=== PATIENT | female | born 1960 | race Caucasian/White ===

== ENCOUNTER 2024-04-23 11:49 | Observation (INO) | payer BC, OTHER ==
[2024-04-23] MEDS: NITROGLYCERIN SL TABS 0.4 MG TAB SUBLINGUAL STA (12:20)
--- NOTE | 2024-04-23 12:34 | ED ---
Chest Pain HPI - General Chief Complaint: Chest Pain Stated Complaint: Chest pain Time Seen by Provider: 04/23/24 12:00 Source: patient Mode of arrival: ambulatory Limitations: no limitations - History of Present Illness Initial Comments: Patient is a 63-year-old female with a past medical history of hypertension, breast cancer intermission for 20 years presenting today for chest pressure. Patient states that 9 days ago she began having "burning" pain in the middle of her upper back that radiated down her left arm, it improved spontaneously however has remained consistent over the course of the last week. This morning the patient woke up with centralized chest pressure stated shortness of breath. Worsens with ambulation. Patient states that when her back pain started she did briefly have a period where she could not remember the words to "Ladonna to the world" but this resolved spontaneously. Otherwise, she denies changes in vision, numbness, weakness, slurred speech, dizziness, new or severe headaches. She has been taking tylenol for pain with little improvement. States that she was previously take metoprolol and losartan, and was seeing Dr. José with cardiology however she lost quite a bit of weight and exerciseso took herself off of these medications 6 months ago. She does not take any other medications and is not on blood thinners. No history of prior PE. Is a non-smoker though her father did have heart disease and at 47 secondary to this. Patient has no history of CAD or prior CVA. She denies recent illness, fevers, cough, diaphroesis, nausea, vomiting, diarrhea, abdominal pain. No LE swelling. - Related Data Home Medications Medication Instructions Recorded Confirmed Acetaminophen Tab [Tylenol Tab] 1,500 mg PO ONCE PRN 04/23/24 04/23/24 Allergies Allergy/AdvReac Type Severity Reaction Status Date / Time amoxicillin Allergy Rash/Hives Verified 04/23/24 13:39 morphine Allergy Wheezing/Ra Verified 04/23/24 13:39 sh Penicillins Allergy Unknown Verified 04/23/24 13:40 Childhood Review of Systems ROS Statement: Those systems with pertinent positive or pertinent negative responses have been documented in the HPI. ROS Other: All systems not noted in ROS Statement are negative. EKG Findings - EKG Comments: EKG Findings:: EKG #1 obtained at 10/12/2015, sinus rhythm, rate 76 bpm, DC i nterval 164 ms, QRS duration 85 ms, QT/QTc 3 to 6/460 ms, normal axis, question [address] elevation in V2, otherwise no reciprocal depressions or ST elevations, no arrhythmia noted in V2 as well. EKG performed at 1229 to ensure no dynamic changes, consistent with prior EKG, [address] elevation V2, otherwise no new ST elevations or depressions, no arrhythmia, rate 82 bpm sinus rhythm DC interval 152 ms, QRS duration 86 ms QT/QTc 4 392/431 ms, borderline left axis deviation Past Medical History Past Medical History: Cancer, Hypertension Additional Past Medical History / Comment(s): Breast cancer History of Any Multi-Drug Resistant Organisms: None Reported Additional Past Surgical History / Comment(s): double mastectomy, bilateral breast implant, Past Psychological History: No Psychological Hx Reported Smoking Status: Never smoker Past Alcohol Use History: None Reported Past Drug Use History: None Reported General Exam - General Exam Comments Initial Comments: PE: CONSTITUTIONAL: No apparent distress, well appearing SKIN: Warm, dry, no jaundice, hives or petechiae EYES: Pupils are equally round, extraocular movements intact without nystagmus, clear conjunctiva, non-icteric sclera HENT: Normocephalic, atraumatic, moist mucus membranes, oropharynx clear without exudates NECK: , Full range of motion, normal appearance PULMONARY: Clear to auscultation without wheezes, rhonchi, or rales, normal excursion, no accessory muscle use and no stridor CARDIOVASCULAR: Regular rate, rhythm, normal S1 and S2. S3 appreciated no appreciated murmurs, rubs. Strong and equal 2+ radial pulses and dorsalis pedis pulses with intact distal perfusion. No lower extremity edema GASTROINTESTINAL: Soft, active bowel sounds throughout, non-tender, non- distended, no palpable masses, no rebound or guarding. No hepatosplenomegaly GENITOURINARY: MUSCULOSKELETAL: Extremities have no gross deformity, no edema, redness, or swelling. Mild tenderness palpation of the left medial scapular region NEUROLOGIC:_a/o x 3, GCS 15, normal mentation and speech. Moves all extremities x 4 without motor or sensory deficit PSYCHIATRIC:_normal mood and affect, thought process is clear and linear Limitations: no limitations Course Vital Signs 04/23/24 04/23/24 04/23/24 11:52 12:20 13:00 Temperature 98.2 F Pulse Rate 80 83 75 Pulse Rate [ Injection Moulding Machine Operator ] Respiratory 18 18 14 Rate Blood Pressure 202/101 209/110 151/92 Blood Pressure [Left Arm] O2 Sat by Pulse 98 98 95 Oximetry 04/23/24 04/23/24 04/23/24 14:02 16:42 18:29 Temperature Pulse Rate 69 78 80 Pulse Rate [ Injection Moulding Machine Operator ] Respiratory 18 18 18 Rate Blood Pressure 155/71 153/81 164/75 Blood Pressure [Left Arm] O2 Sat by Pulse 99 98 98 Oximetry 04/23/24 04/23/24 04/24/24 20:00 21:59 01:37 Temperature 98.0 F 97.9 F Pulse Rate Pulse Rate [ 79 81 Injection Moulding Machine Operator ] Respiratory 18 12 Rate Blood Pressure Blood Pressure 152/72 130/65 [Left Arm] O2 Sat by Pulse 98 98 99 Oximetry 04/24/24 04/24/24 10:10 11:06 Temperature Pulse Rate 95 83 Pulse Rate [ Injection Moulding Machine Operator ] Respiratory 16 16 Rate Blood Pressure 183/99 177/81 Blood Pressure [Left Arm] O2 Sat by Pulse 100 99 Oximetry Chest Pain MDM - MDM Was pt. sent in by a medical professional or institution (, PA, [employer], urgent care, hospital, or correction...) When possible be specific @ -No Did you speak to anyone other than the patient for history (EMS, parent, family, police, friend...)? What history was obtained from this source @ -No Did you review nursing and triage notes (agree or disagree)? Why? @ -I reviewed and agree with nursing and triage notes Were old charts reviewed (outside hosp., previous admission, EMS record, old EKG, old radiological studies, urgent care reports/EKG's, correction records)? Report findings @Medical records reviewed Differential Diagnosis (chest pain, altered mental status, abdominal pain women, abdominal pain men, vaginal bleeding, weakness, fever, dyspnea, syncope, headache, dizziness, GI bleed, back pain, seizure, CVA, palpatations, mental health, musculoskeletal)? @Differential Chest Pain: Stable Angina, Unstable Angina, STEMI, NSTEMI Aortic Dissection, pericarditis, pleurisy, chostochondirits, Pneumothorax, Musculoskeletal, Esophageal Spasm GERD, Cholecystitis, Pancreatitis, Zoster, this is not meant to be an all- inclusive list. EKG interpreted by me (3pts min.). @ -As above X-rays interpreted by me (1pt min.). @ -None done CT interpreted by me (1pt min.). I see no evidence of dissection on CT thorax U/S interpreted by me (1pt. min.). @ -None done What testing was considered but not performed or refused? (CT, X-rays, U/S, labs)? Why? @ -None What meds were considered but not given or refused? Why? @ -None Did you discuss the management of the patient with other professionals (professionals i.e. DrLorena, PA, [employer], lab, RT, psych nurse, social services designee, mail handlers supervisor, teacher, sergeant of officers, shoe parts caser)? Give summary @ -No Was smoking cessation discussed for >3mins.? @ -No Was critical care preformed (if so, how long)? Yes, 45 minutes Were there social determinants of health that impacted care today? How? (Homelessness, low income, unemployed, alcoholism, drug addiction, transportation, low edu. Level, literacy, decrease access to med. care, senior living, rehab)? @ -No Was there de-escalation of care discussed even if they declined (Discuss DNR or withdrawal of care, Hospice)? @ -No What co-morbidities impacted this encounter? (DM, HTN, Smoking, COPD, CAD, Cancer, CVA, ARF, Chemo, Hep., AIDS, mental health diagnosis, sleep apnea, morbid obesity)? @HTN Was patient admitted / discharged? Hospital course, mention meds given and route, prescriptions, significant lab abnormalities, going to OR and other pertinent info. Admission Patient is a 63-year-old female past medical history hypertension, remote history of breast cancer currently on remission presenting today for chest pressure and "burning" back pain. Patient seen and assessed upon rooming. She is well-appearing and in no acute distress. EKG was obtained which showed [address] elevation in V2 with Q waves present otherwise no ST elevations or depressions. Repeat EKG was obtained 50 minutes later without any dynamic changes. Patient patient's blood pressure arrival 202/101. Heart rate is currently in the 60s to 70s. Plan for dissection study out of concern for dissection. Will hold off on aspirin administration until dissection is ruled out. Sublingual nitroglycerin will be given for chest pain and hypertension. Anticipate admission Labs and imaging reviewed. Grossly within normal limits. Abnormal values not concerning for acute pathology related to presenting complaint.. CT angio negative for dissection. Patient's pain has improved. BP controlled after SL nitroglycerin. Pain improved after sublingual nitroglycerin. Anticipate admi ssion. Had extensive discussion with patient regarding need for admission, as she was considering going home, however ultimately, patient agreeable with admission. Case discussed with Dr. Meeks, kindly accepts patient for admission. Undiagnosed new problem with uncertain prognosis? @ -No Drug Therapy requiring intensive monitoring for toxicity (Heparin, Nitro, Insulin, Cardizem)? @ -No Were any procedures done? @ -No Diagnosis/symptom? chest pain, hypertensive emergency Acute, or Chronic, or Acute on Chronic? acute Uncomplicated (without systemic symptoms) or Complicated (systemic symptoms)? complicated Side effects of treatment? @ -No Exacerbation, Progression, or Severe Exacerbation? @ -No Poses a threat to life or bodily function? How? (Chest pain, [place], [place], pneumonia, PE, COPD, DKA, ARF, appy, cholecystitis, CVA, Diverticulitis, Homicidal, Suicidal, threat to staff... and all critical care pts) yes Disposition Clinical Impression: Hypertensive emergency, Chest pain Disposition: ADMITTED IP TO THIS HOSP Condition: Good
[2024-04-23 12:40] LABS: Basophils % (A) 1 %; Eosinophils # (A) 0.2 k/uL (0-0.7); Eosinophils % (A) 3 %; HCT 41.9 % (34.0-46.0); HGB 13.8 gm/dL (11.4-16.0); Lymphocytes # (A) 2.9 k/uL (1.0-4.8); Lymphocytes % (A) 36 %; MCH 29.2 pg (25.0-35.0); MCV 88.6 fL (80.0-100.0); Monocytes # (A) 0.4 k/uL (0-1.0); Monocytes % (A) 4 %; Neutrophils # (A) 4.3 k/uL (1.3-7.7); Neutrophils % (A) 53 %; Platelet Count 231 k/uL (150-450); RBC 4.73 m/uL (3.80-5.40); RDW 12.7 % (11.5-15.5)
[2024-04-23 12:53] LABS: ALT 25 U/L (4-34); African American GFR (CKD) >90 (>60 ml/min/1.73 sqM); Albumin 4.8 g/dL (3.5-5.0); Anion Gap 8 mmol/L; Blood Urea Nitrogen 20 mg/dL (7-17); Calcium 9.7 mg/dL (8.4-10.2); Carbon Dioxide 19 mmol/L (22-30); Chloride 109 mmol/L (98-107); Glucose 97 mg/dL (74-99); Lipase 132 U/L (23-300); Non-African American GFR(CKD) >90 (>60 ml/min/1.73 sqM); Sodium 136 mmol/L (137-145); Total Protein 8.3 g/dL (6.3-8.2)
[2024-04-23 12:55] LABS: Partial Thromboplastin Time 26.3 sec (22.0-30.0)
[2024-04-23 12:56] LABS: AST 31 U/L (14-36); Alkaline Phosphatase 82 U/L (38-126); Potassium 4.5 mmol/L (3.5-5.1)
[2024-04-23 12:59] LABS: NT-Pro-B-Type Natriuretic Pept 336 pg/mL
[2024-04-23] MEDS: ASPIRIN 81 MG PO STA ×2 (13:35→13:59)
--- NOTE | 2024-04-23 13:35 | CT ---
EXAMINATION TYPE: CT angio thor/abd pel aorta CT DLP: 1959.1 mGycm, Automated exposure control for dose reduction was used. DATE OF EXAM: 04/23/2024 1:20 PM COMPARISON: None. CLINICAL INDICATION:Female, 63 years old with history of HTN, chest pain radiating to back; PHH, HTN, chest pain radiating into back TECHNIQUE: Dissection protocol: Multiple axial CT images of the chest, abdomen, and pelvis were obtai dilshad prior and to the administration of IV contrast. 3-D reformats and maximum intensity projection fo rmat were performed on a separate workstation. Then the abdomen was scanned after administration of 1 00 cc of Isovue 370 IV contrast. FINDINGS: ARTERIAL VASCULATURE: The aorta is normal in course and caliber. Minimal atherosclerotic calcificatio n of the aorta and its branches. There is no evidence of aortic dissection, aneurysm or acute aortic injury. Great arch vessels patent and normal in course and caliber. The abdominal aorta demonstrates normal course and caliber. The celiac axis, SMA, bilateral single renal arteries, and GIO are widely patent. The visualized bilateral common iliac arteries, bilateral internal and external iliac arterie s are widely patent. The visualized bilateral common femoral arteries are widely patent. The visualiz ed bilateral superficial and deep femoral arteries are widely patent. PULMONARY ARTERIAL VASCULATURE: Normal caliber. No evidence of filling defect to suggest pulmonary em bolus. VENOUS SYSTEM: Unremarkable. Lungs/pleura: Minimal biapical pleural parenchymal scarring. No focal consolidation, pneumothorax, fo mary consolidation. No suspicious pulmonary nodule or mass. Heart: Within normal limits. No pericardial effusion. Mediastinum: No gross evidence of adenopathy. Lower Neck: Hypodense 1.6 cm nodule within the left thyroid lobe nodule. Soft tissues: Bilateral breast prosthesis. Abdomen: Liver: Unremarkable. Gallbladder and Bile ducts: Unremarkable. Pancreas: Unremarkable. Spleen: Unremarkable. Adrenal glands: Unremarkable. Kidneys and Ureters: Unremarkable. No hydronephrosis. Stomach and Bowel: Unremarkable. No evidence of bowel obstruction. Peritoneum: No evidence of pneumoperitoneum or free fluid. Several prominent mesenteric lymph nodes identified. Bladder: Unremarkable. Reproductive: Unremarkable appearance of the retroverted uterus. Right ovarian 2.2 cm cystic lesion.. Abdominal wall/soft tissues: Unremarkable. Musculoskeletal: The osseous structures appear intact. Mild multilevel degenerative disc disease and facet arthropathy most pronounced involving the lumbar spine. IMPRESSION: 1. No evidence for aortic dissection. 2. Left thyroid lobe 1.6 cm hypodense nodule. Consider further evaluation with outpatient thyroid ult rasound. 3. Indeterminate right ovarian 2.2 cm cystic lesion. Consider further evaluation with outpatient pelv ic ultrasound. [facility], , 04/23/2024 1:33 PM
[2024-04-23 14:19] LABS: Appearance,Urine Clear (Clear); Bilirubin,Urine Negative (Negative); Blood,Urine Negative (Negative); Color,Urine Colorless; Glucose,Urine (UA) Negative (Negative); Ketones,Urine Negative (Negative); Leukocyte Esterase,Urine Negative (Negative); Nitrite,Urine Negative (Negative); PH, Urine 5.5 (5.0-8.0); Protein,Urine Negative (Negative); Specific Gravity,Urine 1.012 (1.001-1.035); Urobilinogen,Urine <2.0 mg/dL (<2.0)
[2024-04-23] MEDS ORDERED: ALPRAZolam 0.25 MG TAB PO PRN (15:34)
--- NOTE | 2024-04-23 16:00 | XR ---
EXAMINATION TYPE: XR chest 1V portable DATE OF EXAM: 04/23/2024 3:53 PM COMPARISON: None CLINICAL INDICATION: Female, 63 years old with history of chf; TECHNIQUE: XR chest 1V portable Frontal view of the chest. FINDINGS: Lungs/Pleura: There is no evidence of pleural effusion, focal consolidation, or pneumothorax. Pulmonary vascularity: Unremarkable. Heart/mediastinum: Cardiomediastinal silhouette is unremarkable. Musculoskeletal: No acute osseous pathology. IMPRESSION: No acute cardiopulmonary disease/process. [facility], , 04/23/2024 3:58 PM
[2024-04-23] MEDS: amLODIPine 5 MG TAB PO SCH (16:47)
[2024-04-23] MEDS: ACETAMINOPHEN TAB 500 MG TAB PO PRN (21:09)
[2024-04-23] MEDS ORDERED: NITROGLYCERIN SL TABS 0.4 MG TAB SUBLINGUAL PRN (21:59)
--- NOTE | 2024-04-24 01:34 | HP ---
HISTORY AND PHYSICAL CHIEF COMPLAINT: Chest pain. HISTORY OF PRESENT ILLNESS: This is a 63-year-old woman with a past medical history of hypertension, history of breast cancer, was complaining of back pain, burning type of pain. Currently, the patient is having chest pain in the anterior part and the patient came to [facility]. The patient had a previous stress test about 3 years ago. Initial troponins are negative. EKG showed nonspecific ST-T changes. The patient also had thoracic aortic CT, which showed no evidence of dissection. Ovarian and thyroid lesions are noted. There is no history of any fever, rigors, or chills. PAST MEDICAL HISTORY: Hypertension, breast cancer. HOME MEDICATIONS: Tylenol. ALLERGIES: Amoxicillin. FAMILY HISTORY: Coronary artery disease in father who at age of 40s. SOCIAL HISTORY: No smoking, or alcohol. The patient is a banker. REVIEW OF SYSTEMS: Fourteen-point review of systems is negative except as mentioned earlier. PHYSICAL EXAMINATION: VITAL SIGNS: Pulse 69, blood pressure 150/70, respirations 18. HEENT: Conjunctivae normal. NECK: No JVD. CARDIOVASCULAR: S1, S2. RESPIRATIONS: Breath sounds diminished at the bases. No rhonchi. No crackles. ABDOMEN: Soft. NERVOUS SYSTEM: Nonfocal. LABORATORY DATA: Reviewed. ASSESSMENT: 1. Chest pain, possible unstable angina. 2. Rule out coronary artery disease. 3. Family history of coronary artery disease. 4. Accelerated hypertension. 5. History of breast cancer and double mastectomy. RECOMMENDATIONS AND DISCUSSION: This is a 63-year-old woman, who presented with multiple complex medical issues, we will monitor the patient closely. Continue the current medications, continue symptomatic treatment. Otherwise, I would recommend n.p.o. past midnight and possible stress test. Guarded prognosis because of multiple complex medical issues. Further recommendations to follow. We will continue with unstable angina protocol. MMODL / IJN: [id number] /
[2024-04-24 01:41] VITALS: TEMP 97.9
[2024-04-24] MEDS: PANTOPRAZOLE 40 MG TABLET PO SCH (06:23)
[2024-04-24] MEDS: ASPIRIN 325 MG TAB PO SCH (10:08)
[2024-04-24 10:14] VITALS: RESP 16
[2024-04-24 11:00] LABS: Basophils # (A) 0.05 X 10*3/uL (0.00-0.10); Basophils % (A) 0.6 %; Eosinophils # (A) 0.23 X 10*3/uL (0.04-0.35); Eosinophils % (A) 2.7 %; HCT 43.5 % (37.2-46.3); HGB 13.6 g/dL (12.0-15.0); Lymphocytes # (A) 3.51 X 10*3/uL (0.90-5.00); Lymphocytes % (A) 41.9 %; MCHC 31.3 g/dL (32.0-37.0); MCV 89.7 FL (80.0-97.0); Monocytes # (A) 0.89 X 10*3/uL (0.20-1.00); Monocytes % (A) 10.6 %; NRBC Per 100 WBC 0 X 10*3/uL (0.00-0.01); Neutrophils # (A) 3.67 X 10*3/uL (1.80-7.70); Neutrophils % (A) 43.8 %; Platelet Count 204 X 10*3/uL (140-440); RBC 4.85 X 10*6/uL (4.10-5.20); WBC 8.38 X 10*3/uL (4.50-10.00)
[2024-04-24 11:05] LABS: ALT 17 U/L (8-44); AST 19 U/L (13-35); Albumin 4.1 g/dL (3.8-4.9); Albumin/Globulin Ratio 1.32 Ratio (1.60-3.17); Alkaline Phosphatase 88 U/L (41-126); BUN/Creat Ratio 24.67 Ratio (12.00-20.00); Blood Urea Nitrogen 14.8 mg/dL (9.0-27.0); Calcium 9.2 mg/dL (8.7-10.3); Carbon Dioxide 22.3 mmol/L (21.6-31.8); Chloride 106 mmol/L (96-109); Chol/HDL Ratio 5.75 Ratio; Globulin 3.1 g/dL (1.6-3.3); Glucose 102 mg/dL (70-110); LDL Cholesterol,Calculated 127.7 mg/dL (0.0-131.0); Sodium 139 mmol/L (135-145); Total Bilirubin 0.4 mg/dL (0.3-1.2); Total Protein 7.2 g/dL (6.2-8.2)
[2024-04-24 11:10] VITALS: BP 177/81; PULSE 83
--- NOTE | 2024-04-24 13:46 | CA ---
Transthoracic Echo Report Name: Mercedes Melendez Age: 63 Gender: F : 1960 Exam Date: 04/24/2024 08:11 Exam Location: [place] [facility] Ht (in): 64 Wt (lb): 205 Ordering Physician: Zach Meeks MD Attending/Referring Phys: Staff Services Manager Jazmyn Rajan RDCS Procedure CPT: Indications: Chest Pain Cardiac Hx: Breast Implants Technical Quality: Poor, Technically difficult study Contrast 1: Total Dose (mL): Contrast 2: Total Dose (mL): MEASUREMENTS (Male / Female) Normal Values 2D ECHO LV Diastolic Diameter PLAX 4.0 cm 4.2 - 5.9 / 3.9 - 5.3 cm LV Systolic Diameter PLAX 2.4 cm IVS Diastolic Thickness 0.9 cm 0.6 - 1.0 / 0.6 - 0.9 cm LVPW Diastolic Thickness 1.0 cm 0.6 - 1.0 / 0.6 - 0.9 cm LV Relative Wall Thickness 0.5 RV Internal Dim ED PLAX 1.7 cm LVOT Diameter 1.8 cm LA Systolic Diameter LX 2.7 cm 3.0 - 4.0 / 2.7 - 3.8 cm M-MODE Aortic Root Diameter MM 2.4 cm LA Systolic Diameter MM 2.7 cm LA Ao Ratio MM 1.1 DOPPLER MV Area PHT 2.8 cm??? Mitral E Point Velocity 77.2 cm/s Mitral A Point Velocity 91.2 cm/s Mitral E to A Ratio 0.8 MV Deceleration Time 267.9 ms TR Peak Velocity 187.9 cm/s TR Peak Gradient 14.1 mmHg Right Ventricular Systolic Press 19.1 mmHg FINDINGS Left Ventricle Left ventricular ejection fraction is estimated at 60-65%.left ventricular cavity size normal. Normal left ventricular systolic function with no obvious regional wall motion abnormalities. Left ventricular cavity size normal. Right Ventricle Normal right ventricular size and function. Right Atrium Normal right atrial size. Left Atrium Normal left atrial size. Mitral Valve Structurally normal mitral valve. No mitral stenosis. Trace mitral regurgitation. Aortic Valve Trileaflet aortic valve. No aortic valve stenosis or regurgitation. Tricuspid Valve Structurally normal tricuspid valve. Trace to mild tricuspid regurgitation. No tricuspid stenosis. Pulmonic Valve Structurally normal pulmonic valve. No pulmonic stenosis. Trace pulmonic regurgitation. Pericardium No pericardial or pleural effusion. Aorta Normal size aortic root and proximal ascending aorta. CONCLUSIONS LVH with preserved systolic function Previewed by: Dr. Sandro Rogers MD (Electronically Signed) Final Date: 24 April 2024 13:45
--- NOTE | 2024-04-24 14:32 | P.CRDCN ---
History of Present Illness History of present illness: Arriving to the ER to evaluate the patient, I was told that the patient has signed out AGAINST MEDICAL ADVICE and was not in the ER in the hospital any further Past Medical History Past Medical History: Cancer, Hypertension Additional Past Medical History / Comment(s): Breast cancer History of Any Multi-Drug Resistant Organisms: None Reported Additional Past Surgical History / Comment(s): double mastectomy, bilateral breast implant, Past Psychological History: No Psychological Hx Reported Smoking Status: Never smoker Past Alcohol Use History: None Reported Past Drug Use History: None Reported Medications and Allergies Home Medications Medication Instructions Recorded Confirmed Type Acetaminophen Tab [Tylenol Tab] 1,500 mg PO ONCE PRN 04/23/24 04/23/24 History Allergies Allergy/AdvReac Type Severity Reaction Status Date / Time amoxicillin Allergy Rash/Hives Verified 04/23/24 13:39 morphine Allergy Wheezing/Ra Verified 04/23/24 13:39 sh Penicillins Allergy Unknown Verified 04/23/24 13:40 Childhood Physical Exam Vitals: Vital Signs Temp Pulse Pulse Resp BP BP Pulse Ox 04/24/24 11:06 83 16 177/81 99 04/24/24 10:10 95 16 183/99 100 04/24/24 01:37 97.9 F 81 12 130/65 99 04/23/24 21:59 98 04/23/24 20:00 98.0 F 79 18 152/72 98 04/23/24 18:29 80 18 164/75 98 04/23/24 16:42 78 18 153/81 98 Intake and Output 04/23/24 04/24/24 04/24/24 22:59 06:59 14:59 Intake Total 450 Balance 450 Intake: Oral 450 Other: Voiding Method Toilet Toilet # Voids 2 1 Weight 92.986 kg Results 04/24/24 06:11 04/24/24 06:11 Cardiac Enzymes 04/23/24 04/24/24 04/24/24 Range/Units 23:13 00:52 06:11 AST 19 (13-35) U/L Troponin I <0.012 <0.012 (0.000-0.034) ng/mL Lipids 04/24/24 Range/Units 06:11 Triglycerides 167.00 H (0.00-149.00) mg/dL Cholesterol 195.00 (0.00-200.00) mg/dL HDL Cholesterol 33.90 L (40.00-60.00) mg/dL Cholesterol/HDL Ratio 5.75 Ratio CBC 04/24/24 Range/Units 06:11 WBC 8.38 (4.50-10.00) X 10*3/uL RBC 4.85 (4.10-5.20) X 10*6/uL Hgb 13.6 (12.0-15.0) g/dL Hct 43.5 (37.2-46.3) % Plt Count 204 (140-440) X 10*3/uL Comprehensive Metabolic Panel 04/24/24 Range/Units 06:11 Sodium 139 (135-145) mmol/L Potassium 4.0 (3.5-5.5) mmol/L Chloride 106 (96-109) mmol/L Carbon Dioxide 22.3 (21.6-31.8) mmol/L BUN 14.8 (9.0-27.0) mg/dL Creatinine 0.6 (0.6-1.5) mg/dL Glucose 102 (70-110) mg/dL Calcium 9.2 (8.7-10.3) mg/dL AST 19 (13-35) U/L ALT 17 (8-44) U/L Alkaline Phosphatase 88 (41-126) U/L Total Protein 7.2 (6.2-8.2) g/dL Albumin 4.1 (3.8-4.9) g/dL Current Medications Generic Name Dose Route Start Last Admin Trade Name Freq PRN Reason Stop Dose Admin Acetaminophen 500 mg 04/23/24 15:34 04/23/24 21:09 Acetaminophen Tab 500 Mg Tab PO 500 mg Q6HR PRN Administration Fever and/ or Pain Alprazolam 0.25 mg 04/23/24 15:34 Alprazolam 0.25 Mg Tab PO TID PRN Anxiety Amlodipine Besylate 5 mg 04/23/24 15:45 04/24/24 10:08 Amlodipine 5 Mg Tab PO 5 mg DAILY ROBERTH Administration Aspirin 325 mg 04/24/24 09:00 04/24/24 10:08 Aspirin 325 Mg Tab PO 325 mg DAILY ROBERTH Administration Nitroglycerin 0.4 mg 04/23/24 21:59 Nitroglycerin Sl Tabs 0.4 Mg Tab SUBLINGUAL Q5M PRN Chest Pain Pantoprazole Sodium 40 mg 04/24/24 07:30 04/24/24 06:23 Pantoprazole 40 Mg Tablet PO 40 mg [id number] ROBERTH Administration Intake and Output 04/23/24 04/24/24 04/24/24 22:59 06:59 14:59 Intake Total 450 Balance 450 Intake: Oral 450 Other: Voiding Method Toilet Toilet # Voids 2 1 Weight 92.986 kg 04/24/24 06:11 04/24/24 06:11
--- NOTE | 2024-04-24 19:25 | DS ---
DISCHARGE SUMMARY FINAL DIAGNOSES: 1. Chest pain, possible unstable angina. 2. Rule out coronary artery disease. 3. Family history of coronary artery disease. 4. Accelerated hypertension. 5. History of breast cancer, double mastectomy. DISCHARGE DISPOSITION: The patient left the hospital against medical advice. HISTORY OF PRESENT ILLNESS: This 63-year-old woman was admitted with chest pain; however, the patient left the hospital against medical advice. Please refer to the multiple consultations and notes and history and physical for further details. MMODL / IJN: [id number] /
== END 2024-04-24 14:12 | disposition left against medical advice (07) ==
LOC: EC 11:49 → 6NMEDSUR 18:44
PROVIDERS: ADMIT Hospitalist; ATTEND Hospitalist
DX: R07.89 Other chest pain (principal); I16.1 Hypertensive emergency; I10 Essential (primary) hypertension; Z53.29 Procedure and treatment not carried out because of patient's decision for other reasons; Z82.49 Family history of ischemic heart disease and other diseases of the circulatory system; Z85.3 Personal history of malignant neoplasm of breast; Z90.13 Acquired absence of bilateral breasts and nipples; Z98.82 Breast implant status; Z88.0 Allergy status to penicillin; Z88.5 Allergy status to narcotic agent
CPT/HCPCS: 99285; 36415; 93005; 93306; 83880; 80061; 80053 ×2; 83690; 83735; 84484 ×2; 85025 ×2; 85610; 85730; 81003; 71045; 71275; 74174; G0378 ×2; Q9967